=== PATIENT | female | born 1995 | race Caucasian/White ===

== ENCOUNTER 2016-07-31 02:48 | Outpatient (CLI) | payer SELFPAY ==
[~2016-07-31] VITALS: Ht 157.5 cm; Wt 55.0 kg
[~2016-07-31 02:48] MED LIST: /ACETCOD3T OR; /ACYC20CA OR; /AUGM875TA OR; DOXY150C PO; HYDR-4274 PO; KEFL500C7 PO; NITR100C37 PO; NSAIDS PO; OXYC1TAB23 PO; PERCOCET PO; PRIL20CA9 PO; PROZ10CA7 PO; ZOFR4TAB3 PO; [UNRECOGNIZED DRUG - REMARK]
[2016-07-31 02:56] VITALS: BP 129/79
[2016-07-31 03:53] LABS: MEAN CORPUSCULAR HEMOGLOBIN 25.9 pg (27.0-33.0); MEAN CORPUSCULAR HGB CONC 32.6 g/dl (32.0-36.5); MEAN CORPUSCULAR VOLUME 79.4 fl (80.0-96.0); RED CELL DISTRIBUTION WIDTH 15.2 % (11.5-14.5); WHITE BLOOD COUNT 11.5 K/mm3 (4.0-10.0)
[2016-07-31 04:13] LABS: AMPHETAMINES URINE REFLEX NEGATIVE (NEGATIVE); BARBITURATES URINE REFLEX NEGATIVE (NEGATIVE); BENZODIAZEPINES URINE REFLEX NEGATIVE (NEGATIVE); COCAINE METABOLITE URINE REFLE NEGATIVE (NEGATIVE); CONTROL LINE INT CTR LINE PRESENT; METHADONE URINE REFLEX NEGATIVE (NEGATIVE); OPIATES URINE REFLEX NEGATIVE (NEGATIVE); TRICYCLIC ANTIDEPRESS UR REFL NEGATIVE (NEGATIVE)
[2016-07-31 07:26] VITALS: BP 107/52
== END 2016-07-31 07:45 | disposition home or self-care (01) ==
LOC: M LDO 02:48
PROVIDERS: ATTEND Specialist
DX: O60.03 Preterm labor without delivery, third trimester (principal); Z3A.36 36 weeks gestation of pregnancy

== ENCOUNTER 2016-07-31 17:46 | Inpatient (IN) | payer MEDICAID, SELFPAY ==
[2016-07-31] VITALS (26 sets, daily range): BP systolic 93–147; BP diastolic 45–97
[~2016-07-31] VITALS: Ht 157.5 cm; Wt 52.0 kg
[2016-07-31] MEDS ORDERED: LR 1,000 ML IV SCH (18:22)
[2016-07-31] MEDS ORDERED: LACTATED RINGER'S 1000 ML IV STA (18:22)
[2016-07-31] MEDS ORDERED: OXYTOCIN DRIP 30 UNITS in APPROPRIATE DILUENT 1 EA IV SCH (18:30)
[2016-07-31] MEDS ORDERED: BUTORPHANOL 2 MG/ML INJ (J0595) IV PRN (18:30)
[2016-07-31] MEDS ORDERED: PROMETHAZINE INJ 25 MG/ML VIAL (J2550) IV PRN (18:30)
[2016-07-31 19:01] LABS: MEAN CORPUSCULAR HEMOGLOBIN 26.2 pg (27.0-33.0); MEAN CORPUSCULAR HGB CONC 32.8 g/dl (32.0-36.5); MEAN CORPUSCULAR VOLUME 79.9 fl (80.0-96.0); RED CELL DISTRIBUTION WIDTH 15.5 % (11.5-14.5); WHITE BLOOD COUNT 11.5 K/mm3 (4.0-10.0)
[2016-07-31 19:11] LABS: AMPHETAMINES URINE REFLEX NEGATIVE (NEGATIVE); BARBITURATES URINE REFLEX NEGATIVE (NEGATIVE); BENZODIAZEPINES URINE REFLEX NEGATIVE (NEGATIVE); COCAINE METABOLITE URINE REFLE NEGATIVE (NEGATIVE); CONTROL LINE INT CTR LINE PRESENT; METHADONE URINE REFLEX NEGATIVE (NEGATIVE); OPIATES URINE REFLEX NEGATIVE (NEGATIVE); TRICYCLIC ANTIDEPRESS UR REFL NEGATIVE (NEGATIVE)
--- NOTE | 2016-07-31 19:14 | HPE ---
DATE OF ADMISSION: 07/31/2016 21-year-old 2, para 0-0-1-0, estimated date of delivery 08/25/2016. Here at 36 weeks 4 days with reports of leaking clear fluid since about 1700. Denies regular contractions or bleeding. Fetus is active. Last normal menstrual period unknown. Sonogram at 7 weeks confirmed her date. Anatomy scan within normal limits. complicated by hyperemesis, poor weight gain and anemia. Social issues during included father of the baby drug use. ALLERGIES: She is allergic to amoxicillin. MEDICAL/SURGICAL HISTORY: Depression, anxiety and appendectomy. FAMILY HISTORY: Hepatitis A and C. SOCIAL HISTORY: Single. Family is supportive. Denies tobacco, alcohol or drugs. OBJECTIVE: Prepregnancy weight 98, total weight gain 22 pounds. A+, antibody negative, rubella immune, VDRL, hepatitis B, hepatitis C, HIV, gonorrhea, Chlamydia all negative. 1-hour glucose 81. 28-week H H 9.2 and 27 and group B strep is unknown. Vital signs are stable. She is in no apparent distress. Heart rate is regular. Respirations are easy. Abdomen is soft, gravid, longitudinal lie. Rare contractions. heart 145, moderate variability with accelerations. Clear fluid draining per vagina. Positive Nitrazine, positive fern. Sterile vaginal exam 2-3 cm, 90% -1 cephalic. Group B strep obtained. ASSESSMENT: Primipara at 36 weeks 4 days, premature rupture of membranes (PPROM), category one tracing social issues. PLAN: Admit urine drug screen, group B strep prophylaxis, Pitocin induction of labor.
[2016-07-31] MEDS ORDERED: FENTANYL 2MCG/ML ROPIVACAINE 0.2% NACL 250 ML CADD As Ordered ONE (20:59)
[2016-07-31] MEDS ORDERED: EPIDURAL/PCA KEYS XX PRN (22:15)
[2016-07-31] MEDS ORDERED: ePHEDrine SULFATE 25 MG/5 ML(5MG/ML) SYRINGE IV PRN (22:15)
[2016-07-31] MEDS ORDERED: FENTANYL/ROPIVACAINE/NACL CADD 250 ML EPIDURAL SCH (22:15)
[2016-07-31] MEDS ORDERED: NALOXONE INJ 0.4 MG/1 ML VIAL (J2310) IV PRN (22:15)
[2016-07-31] MEDS ORDERED: ONDANSETRON 4MG/2ML VIAL (J2405) IV PRN (22:15)
[2016-07-31] MEDS ORDERED: EPIDURAL COMMENT XX SCH (22:15)
[2016-07-31] MEDS ORDERED: diphenhydrAMINE INJ 50MG/ML VIAL (J1200) IV PRN (22:15)
[2016-07-31] MEDS ORDERED: REFRIGERATOR IV KEYS XX PRN (22:15)
[2016-07-31] MEDS ORDERED: LACTATED RINGER'S 1000 ML IV PRN (22:15)
[2016-08-01] VITALS (14 sets, daily range): BP systolic 87–126; BP diastolic 50–67
[2016-08-01] MEDS ORDERED: ACETAMINOPHEN 650 MG SUPP PR SCH (02:15)
[2016-08-01] MEDS ORDERED: ACETAMINOPHEN 650 MG SUPP PR PRN (02:20)
[2016-08-01] MEDS ORDERED: ceFAZolin SOD 1 GM in D5W MINI-BAG PLUS 50 ML IV SCH (03:00)
[2016-08-01] MEDS ORDERED: D5W IV ONE (03:00)
[2016-08-01] MEDS ORDERED: GENTAMICIN SULFATE IV ONE (03:00)
[2016-08-01 03:19] LABS: CORD GAS ABE A -0.2; CORD GAS ABE V -4.6; CORD GAS HCO3 A 25.3 MEQ/L; CORD GAS HCO3 V 19.5 MEQ/L; CORD GAS O2 SAT A 42.4 %; CORD GAS O2 SAT V 40.2 %; CORD GAS PCO2 A 44.1 mmHg; CORD GAS PCO2 V 33.8 mmHg; CORD GAS PH A 7.376 UNITS; CORD GAS PH V 7.379 UNITS; CORD GAS PO2 A 17.1 mmHg; CORD GAS PO2 V 18.1 mmHg; CORD GAS SBC A 22.8 MEQ/L; CORD GAS SBC V 19.3 MEQ/L; CORD GAS TCO2 A 26.6 MEQ/L; CORD GAS TCO2 V 20.5 MEQ/L
[2016-08-01] MEDS ORDERED: DOCUSATE SODIUM 100 MG CAP PO PRN (03:30)
[2016-08-01] MEDS ORDERED: ANUSOL HC CREAM 30GM TOP PRN (03:30)
[2016-08-01] MEDS ORDERED: MOM 30ML SUSPENSION UDC PO PRN (03:30)
[2016-08-01] MEDS ORDERED: METHYLERGONOVINE MALEATE 0.2 MG TAB PO PRN (03:30)
[2016-08-01] MEDS ORDERED: ACETAMINOPHEN 500 MG TAB PO PRN (03:30)
[2016-08-01] MEDS ORDERED: LIDOCAINE 1% MDV INJ 50 ML VIAL INFIL ONE (03:30)
[2016-08-01] MEDS ORDERED: DIBUCAINE 1% OINTMENT 30GM TOP PRN (03:30)
[2016-08-01] MEDS ORDERED: METHYLERGONOVINE MALEATE 0.2 MG/ML VIAL (J2210) IM ONE (03:30)
[2016-08-01] MEDS ORDERED: MEASLES,MUMPS,RUBELLA VACCINE INJ (MMR-II) (90707) SC SCH (03:30)
[2016-08-01] MEDS ORDERED: RHOGAM 300 MCG (1500 IU) INJ (J2790) IM SCH (03:30)
[2016-08-01] MEDS ORDERED: CLINDAMYCIN 600 MG in APPROPRIATE DILUENT 1 EA IV SCH (04:00)
--- NOTE | 2016-08-01 04:11 | DN ---
DATE OF SERVICE: 08/01/2016 Spontaneous rupture of membranes clear fluid 1540. Utilized epidural for coping. Maternal temperature prior to delivery 101.6. intensive care unit (NICU) was notified. Tylenol suppository given. Fully dilated 0235. Viable female delivered left occiput anterior (BERNIE) restituted to left occiput posterior (LOP) at 0256. Spontaneous respirations. Transitioned on maternal abdomen. Cord doubly clamped and cut once pulsations ceased. scores 9 and 9. Cord gases were obtained. Placenta Swan and intact with three-vessel cord at 0307. Fundus firmed with massage and intravenous (IV) Pitocin bolus. Intramuscular (IM) Methergine given for persistent bleeding with good control. Estimated blood loss 300 mL. Bilateral labial abrasions and posterior vaginal first-degree repaired with 3-0 Vicryl Rapide. weight 5 pounds 14 ounces, 2658 grams. Placenta sent to pathology. Sponge, sharp and instrument count correct.
[2016-08-01] MEDS ORDERED: ONDANSETRON 4 MG TAB (S0181) PO PRN (05:00)
[2016-08-01] MEDS: PRENATAL VITAMIN TAB PO SCH (08:27)
[2016-08-01] MEDS ORDERED: GENTAMICIN SULFATE 80 MG in APPROPRIATE DILUENT 1 EA IV SCH (11:00)
[2016-08-02 05:56] VITALS: BP 105/52
[2016-08-02] MEDS: PRENATAL VITAMIN TAB PO SCH (08:54)
[2016-08-02 18:00] VITALS: BP 126/60
[2016-08-03] MEDS: IBUPROFEN 800 MG TAB PO PRN ×2 (01:34→08:14)
[2016-08-03 06:11] VITALS: BP 91/51
[2016-08-03] MEDS: PRENATAL VITAMIN TAB PO SCH (08:14)
[2016-08-03] MEDS ORDERED: PRENTAB9 PO (08:19)
[2016-08-03] MEDS ORDERED: ACET50TA PO (08:19)
[2016-08-03] MEDS ORDERED: IBUP-1114 PO (08:20)
== END 2016-08-03 09:10 | disposition home or self-care (01) | DRG 560 ==
LOC: M LDO 17:46 → M LDI 18:20 → M OBS 08-01 05:11
PROVIDERS: ADMIT Advanced Practice Midwife; ATTEND Advanced Practice Midwife
PROC: 10E0XZZ Delivery of Products of Conception, External Approach (ICD-10-PCS; principal; 2016-08-01)
PROC: 0HQ9XZZ Repair Perineum Skin, External Approach (ICD-10-PCS; 2016-08-01)
DX: O42.013 Preterm premature rupture of membranes, onset of labor within 24 hours of rupture, third trimester (principal); O70.0 First degree perineal laceration during delivery; Z37.0 Single live birth; Z3A.36 36 weeks gestation of pregnancy

== ENCOUNTER 2017-03-06 22:49 | Emergency (ER) | payer MEDICAID ==
[~2017-03-06] VITALS: Ht 157.5 cm; Wt 46.2 kg
[~2017-03-06 22:49] MED LIST changes: +ACET50TA PO; -HYDR-4274 PO; +HYDR50TA70 PO; +IBUP-1114 PO; +KEFL500C17 PO; -KEFL500C7 PO; -NITR100C37 PO; +NITR100C39 PO; +PRENTAB9 PO
[2017-03-07] MEDS ORDERED: NS 1,000 ML IV ONE (01:00)
[2017-03-07 01:24] LABS: BASO % 0.3 % (0.0-1.0); EOS # 0.1 K/mm3 (0.0-0.50); EOS % 2.2 % (0.0-3.0); LARGE UNSTAINED CELL # 0.1 K/mm3 (0.0-0.4); LARGE UNSTAINED CELL % 1.8 % (0.0-4.0); LYMPH # 2.6 K/mm3 (1.5-6.5); LYMPH % 41.6 % (24.0-44.0); MEAN CORPUSCULAR HEMOGLOBIN 29.9 pg (27.0-33.0); MEAN CORPUSCULAR VOLUME 87.9 fl (80.0-96.0); MONO # 0.5 K/mm3 (0.0-0.8); MONO % 7.8 % (0.0-5.0); NEUTROPHILS # 2.9 K/mm3 (1.8-7.7); NEUTROPHILS % 46.4 % (36.0-66.0); PLATELET COUNT, AUTOMATED 291 k/mm3 (150-450); RED CELL DISTRIBUTION WIDTH 13.7 % (11.5-14.5); WHITE BLOOD COUNT 6.2 K/mm3 (4.0-10.0)
[2017-03-07 01:50] LABS: ALBUMIN 4.2 GM/DL (3.2-5.2); ALBUMIN/GLOBULIN RATIO 1.27 (1.00-1.93); ALKALINE PHOSPHATASE 63 U/L (45-117); ALT/SGPT 19 U/L (12-78); ANION GAP 4 MEQ/L (8-16); AST/SGOT 14 U/L (15-37); BILIRUBIN,DIRECT < 0.1 MG/DL (0.0-0.2); BILIRUBIN,TOTAL 0.3 MG/DL (0.2-1.0); BLOOD UREA NITROGEN 18 MG/DL (7-18); CALCIUM LEVEL 9.1 MG/DL (8.5-10.1); CARBON DIOXIDE LEVEL 28 MEQ/L (21-32); CHLORIDE LEVEL 107 MEQ/L (98-107); CREATININE FOR GFR 0.77 MG/DL (0.55-1.02); GLOMERULAR FILTRATION RATE > 60.0 (>60); GLUCOSE, FASTING 88 MG/DL (70-105); POTASSIUM SERUM 4.6 MEQ/L (3.5-5.1); SODIUM LEVEL 139 MEQ/L (136-145); TOTAL PROTEIN 7.5 GM/DL (6.4-8.2)
[2017-03-07 02:03] VITALS: BP 103/71
--- NOTE | 2017-03-07 02:50 | REPUSA ---
CLINICAL HISTORY: Pelvic pain. TECHNIQUE: Realtime sonographic images were obtained in multiple projections via TA approach. COMMENTS: The uterus is anteverted measuring 7.7x 4.2 x 4.3 cm. The endometrial echo pattern is within normal l imits measuring 15 mm. There is no evidence of free fluid within the pelvic cul-de-sac. The right ovary measures 3.7 x 2.9 x 3 cm and the left ovary measures 4.7 x 3.2 x 2.9 cm. Both ovarie s are free of solid mass. Left hemorrhagic cyst 2 x 1.6 x 1.9 cm. There is no evidence for abnormal vascularity. IMPRESSION: Left ovarian hemorrhagic cyst 2 x 1.6 x 1.9 cm. Thickened endometrium. Thank you for your kind referral of this patient.
== END 2017-03-07 02:44 | disposition home or self-care (01) ==
LOC: M ED 22:49
DX: N83.202 Unspecified ovarian cyst, left side (principal); N91.1 Secondary amenorrhea; Z87.440 Personal history of urinary (tract) infections; Z88.0 Allergy status to penicillin

== ENCOUNTER → 2017-05-28 | Outpatient (REF) | payer MEDICAID | LOC: M LAB REF 09:08 | PROVIDERS: ATTEND Physician Assistant Medical | DX: N39.0 Urinary tract infection, site not specified (principal) ==

== ENCOUNTER 2017-11-27 20:58 | Emergency (ER) | payer OTHER, SELFPAY, MEDICAID ==
[2017-11-27 22:01] LABS: KETONE, URINE AUTO RFX 1+ mg/dL (NEGATIVE); MUCUS, URINE RFX LARGE (NEGATIVE); NITRITE, URINE AUTO RFX NEGATIVE (NEGATIVE); RBC, URINE AUTO RFX 37 /HPF (0-3); SPECIFIC GRAVITY UR AUTO RFX 1.028 (1.002-1.035); SQUAM EPITHELIAL CELL UR AURFX 9 /HPF (0-6)
[2017-11-27 22:05] LABS: LEUKOCYTE ESTERASE UR AUTO RFX 3+ (NEGATIVE); WBC, URINE AUTO RFX 168 /HPF (0-3)
[2017-11-27 23:25] LABS: BASO % 0.3 % (0.0-1.0); EOS # 0.1 10^3/uL (0.0-0.50); EOS % 0.6 % (0.0-3.0); HEMATOCRIT 41.7 % (36.0-47.0); HEMOGLOBIN 14.2 g/dl (12.0-15.5); IMMATURE GRANULOCYTE % 0.2 % (0-3.0); LYMPH # 2.4 10^3/uL (1.5-6.5); LYMPH % 24.8 % (24.0-44.0); MEAN CORPUSCULAR HEMOGLOBIN 29.9 pg (27.0-33.0); MEAN CORPUSCULAR HGB CONC 34.1 g/dl (32.0-36.5); MEAN CORPUSCULAR VOLUME 87.8 fl (80.0-96.0); MONO # 0.9 10^3/uL (0.0-0.8); MONO % 9.8 % (0.0-5.0); NEUTROPHILS # 6.1 10^3/uL (1.8-7.7); NEUTROPHILS % 64.3 % (36.0-66.0); PLATELET COUNT, AUTOMATED 305 10^3/uL (150-450); RED BLOOD COUNT 4.75 10^6/uL (4.00-5.40); RED CELL DISTRIBUTION WIDTH 12.5 % (11.5-14.5); WHITE BLOOD COUNT 9.5 10^3/uL (4.0-10.0)
[2017-11-27 23:36] LABS: PROTHROMBIN TIME 13.3 SECONDS (12.4-14.5)
[2017-11-27] MEDS: NS 1,000 ML IV ×2 (23:43)
[2017-11-28 00:04] LABS: ALBUMIN 3.8 GM/DL (3.2-5.2); ALBUMIN/GLOBULIN RATIO 0.97 (1.00-1.93); ALKALINE PHOSPHATASE 48 U/L (45-117); ALT/SGPT 16 U/L (12-78); AMYLASE 60 U/L (25-115); ANION GAP 7 MEQ/L (8-16); AST/SGOT 13 U/L (7-37); BILIRUBIN,DIRECT 0.1 MG/DL (0.0-0.2); BILIRUBIN,TOTAL 0.8 MG/DL (0.2-1.0); BLOOD UREA NITROGEN 11 MG/DL (7-18); CALCIUM LEVEL 9.1 MG/DL (8.5-10.1); CARBON DIOXIDE LEVEL 26 MEQ/L (21-32); CHLORIDE LEVEL 104 MEQ/L (98-107); CREATININE FOR GFR 0.66 MG/DL (0.55-1.30); GLOMERULAR FILTRATION RATE > 60.0 (>60); GLUCOSE, FASTING 65 MG/DL (70-100); HCG, SERUM QUANTITATIVE 88798 MIU/ML; LIPASE 91 U/L (73-393); POTASSIUM SERUM 4.2 MEQ/L (3.5-5.1); SODIUM LEVEL 137 MEQ/L (136-145); TOTAL PROTEIN 7.7 GM/DL (6.4-8.2)
[2017-11-28 02:27] LABS: CHLAMYDIA DNA AMPLIFICATION NEGATIVE (NEGATIVE); GC DNA AMPLIFICATION NEGATIVE (NEGATIVE)
== END 2017-11-28 00:51 | disposition home or self-care (01) ==
LOC: M ED 11-28 00:51
DX: O23.41 Unspecified infection of urinary tract in pregnancy, first trimester (principal); O99.341 Other mental disorders complicating pregnancy, first trimester; F41.9 Anxiety disorder, unspecified; F33.9 Major depressive disorder, recurrent, unspecified; O99.611 Diseases of the digestive system complicating pregnancy, first trimester; K21.9 Gastro-esophageal reflux disease without esophagitis; Z88.0 Allergy status to penicillin; Z3A.01 Less than 8 weeks gestation of pregnancy
CPT/HCPCS: 76801

== ENCOUNTER 2017-12-05 12:03 | Emergency (ER) | payer OTHER, SELFPAY, MEDICAID ==
[2017-12-05] MEDS: NS 1,000 ML IV ×2 (16:00)
[2017-12-05 16:21] LABS: BASO % 0.2 % (0.0-1.0); EOS % 0.2 % (0.0-3.0); HEMATOCRIT 41.7 % (36.0-47.0); HEMOGLOBIN 14.4 g/dl (12.0-15.5); IMMATURE GRANULOCYTE % 0.2 % (0-3.0); LYMPH # 1.9 10^3/uL (1.5-6.5); LYMPH % 21.7 % (24.0-44.0); MEAN CORPUSCULAR HGB CONC 34.5 g/dl (32.0-36.5); MEAN CORPUSCULAR VOLUME 86.9 fl (80.0-96.0); MONO # 0.7 10^3/uL (0.0-0.8); MONO % 8.2 % (0.0-5.0); NEUTROPHILS # 5.9 10^3/uL (1.8-7.7); NEUTROPHILS % 69.5 % (36.0-66.0); PLATELET COUNT, AUTOMATED 316 10^3/uL (150-450); RED CELL DISTRIBUTION WIDTH 12.2 % (11.5-14.5); WHITE BLOOD COUNT 8.5 10^3/uL (4.0-10.0)
[2017-12-05 16:30] LABS: KETONE, URINE AUTO RFX 2+ mg/dL (NEGATIVE); MUCUS, URINE RFX SMALL (NEGATIVE); NITRITE, URINE AUTO RFX NEGATIVE (NEGATIVE); RBC, URINE AUTO RFX 4 /HPF (0-3); SPECIFIC GRAVITY UR AUTO RFX 1.027 (1.002-1.035); SQUAM EPITHELIAL CELL UR AURFX 3 /HPF (0-6); WBC, URINE AUTO RFX 8 /HPF (0-3)
[2017-12-05 16:31] LABS: LEUKOCYTE ESTERASE UR AUTO RFX 2+ (NEGATIVE)
[2017-12-05] MEDS: METOCLOPRAMIDE INJ 10MG/2ML VIAL (J2765) IV ×2 (17:05)
[2017-12-05 17:12] LABS: HCG, SERUM QUANTITATIVE 156112 MIU/ML
== END 2017-12-05 17:39 | disposition home or self-care (01) ==
LOC: M ED 12:03
DX: O21.9 Vomiting of pregnancy, unspecified (principal); Z3A.00 Weeks of gestation of pregnancy not specified; O99.341 Other mental disorders complicating pregnancy, first trimester; F33.9 Major depressive disorder, recurrent, unspecified; F41.9 Anxiety disorder, unspecified; O99.611 Diseases of the digestive system complicating pregnancy, first trimester; K21.9 Gastro-esophageal reflux disease without esophagitis; Z98.890 Other specified postprocedural states; Z88.0 Allergy status to penicillin
CPT/HCPCS: J2765

== ENCOUNTER 2018-06-02 16:21 | Emergency (ER) | payer MEDICAID ==
[2018-06-02 17:28] LABS: BASO % 0.4 % (0.0-1.0); EOS % 0.5 % (0.0-3.0); HEMOGLOBIN 15.1 g/dl (12.0-15.5); IMMATURE GRANULOCYTE % 0.3 % (0-3.0); LYMPH # 2.3 10^3/uL (1.5-6.5); LYMPH % 31.4 % (24.0-44.0); MEAN CORPUSCULAR HEMOGLOBIN 29.4 pg (27.0-33.0); MEAN CORPUSCULAR HGB CONC 32.8 g/dl (32.0-36.5); MEAN CORPUSCULAR VOLUME 89.5 fl (80.0-96.0); MONO # 0.8 10^3/uL (0.0-0.8); MONO % 10.8 % (0.0-5.0); NEUTROPHILS # 4.2 10^3/uL (1.8-7.7); NEUTROPHILS % 56.6 % (36.0-66.0); PLATELET COUNT, AUTOMATED 308 10^3/uL (150-450); RED BLOOD COUNT 5.14 10^6/uL (4.00-5.40); RED CELL DISTRIBUTION WIDTH 12.4 % (11.5-14.5); WHITE BLOOD COUNT 7.4 10^3/uL (4.0-10.0)
[2018-06-02 17:34] LABS: ALBUMIN 4.5 GM/DL (3.2-5.2); ALBUMIN/GLOBULIN RATIO 1.25 (1.00-1.93); ALKALINE PHOSPHATASE 62 U/L (45-117); ALT/SGPT 26 U/L (12-78); AMYLASE 79 U/L (25-115); ANION GAP 9 MEQ/L (8-16); AST/SGOT 15 U/L (7-37); BILIRUBIN,TOTAL 0.6 MG/DL (0.2-1.0); BLOOD UREA NITROGEN 16 MG/DL (7-18); CALCIUM LEVEL 9.2 MG/DL (8.5-10.1); CARBON DIOXIDE LEVEL 26 MEQ/L (21-32); CHLORIDE LEVEL 104 MEQ/L (98-107); CREATININE FOR GFR 0.86 MG/DL (0.55-1.30); GLOMERULAR FILTRATION RATE > 60.0 (>60); GLUCOSE, FASTING 80 MG/DL (70-100); HCG, SERUM QUANTITATIVE < 1.0 MIU/ML; LIPASE 110 U/L (73-393); POTASSIUM SERUM 4.1 MEQ/L (3.5-5.1); SODIUM LEVEL 139 MEQ/L (136-145); TOTAL PROTEIN 8.1 GM/DL (6.4-8.2)
[2018-06-02 17:38] LABS: APPEARANCE, URINE CLEAR (CLEAR); BACTERIA, URINE AUTO NEGATIVE (NEGATIVE); BILIRUBIN, URINE AUTO NEGATIVE (NEGATIVE); BLOOD, URINE BLOOD 1+ (NEGATIVE); COLOR, URINE YELLOW (YELLOW); GLUCOSE, URINE (UA) AUTO NEGATIVE (NEGATIVE); KETONE, URINE AUTO TRACE mg/dL (NEGATIVE); LEUKOCYTE ESTERASE, URINE AUTO NEGATIVE (NEGATIVE); MUCUS, URINE SMALL (NEGATIVE); NITRITE, URINE AUTO NEGATIVE (NEGATIVE); PROTEIN, URINE AUTO NEGATIVE (NEGATIVE); RBC, URINE AUTO 8 /HPF (0-3); SPECIFIC GRAVITY URINE AUTO 1.023 (1.002-1.035); SQUAMOUS EPITHELIAL CELL UR AU 0 /HPF (0-6); WBC, URINE AUTO 2 /HPF (0-3)
[2018-06-02] MEDS: NS 500 ML IV (17:39)
[2018-06-02] MEDS: METOCLOPRAMIDE INJ 10MG/2ML VIAL (J2765) IV (17:40)
[2018-06-02] MEDS: KETOROLAC 30 MG/ML VIAL (J1885) IV (17:40)
[2018-06-02] MEDS: GASTROGRAFIN SOLUTION 30ML PO ×2 (18:12→18:37)
[2018-06-02] MEDS ORDERED: ISOVUE-370 76% 100ML VIAL (Q9967) As Ordered (19:37)
== END 2018-06-02 21:57 | disposition home or self-care (01) ==
LOC: M ED 16:21
DX: R10.84 Generalized abdominal pain (principal); R11.2 Nausea with vomiting, unspecified; T50.905A Adverse effect of unspecified drugs, medicaments and biological substances, initial encounter; X58.XXXA Exposure to other specified factors, initial encounter; F33.9 Major depressive disorder, recurrent, unspecified; F41.9 Anxiety disorder, unspecified; Z87.440 Personal history of urinary (tract) infections; Z88.0 Allergy status to penicillin; F17.210 Nicotine dependence, cigarettes, uncomplicated
CPT/HCPCS: Q9963

== ENCOUNTER → 2018-07-31 | Outpatient (REF) | payer MEDICAID ==
[~2018-07-31] MED LIST changes: -ACET50TA PO; +MACR100C43 PO; +MAPA500T2 PO; +ZOFR4TAB14 PO; -ZOFR4TAB3 PO
[2018-07-31 15:15] LABS: CHLAMYDIA DNA AMPLIFICATION NEGATIVE (NEGATIVE); GC DNA AMPLIFICATION NEGATIVE (NEGATIVE)
== END ==
LOC: M LAB REF 13:26
PROVIDERS: ATTEND Advanced Practice Midwife
DX: Z11.3 Encounter for screening for infections with a predominantly sexual mode of transmission (principal)

== ENCOUNTER → 2018-07-31 | Outpatient (CLI) | payer MEDICAID ==
[2018-07-31 13:46] LABS: HCG, SERUM QUALITATIVE NEGATIVE (NEGATIVE)
[2018-07-31 14:06] LABS: FREE T4 0.42 NG/DL (0.76-1.46)
== END ==
LOC: M LAB 12:28
PROVIDERS: ATTEND Advanced Practice Midwife
DX: N91.1 Secondary amenorrhea (principal)

== ENCOUNTER 2018-10-09 12:33 | Emergency (ER) | payer MEDICAID ==
[~2018-10-09] VITALS: Ht 157.5 cm; Wt 47.9 kg
[~2018-10-09 12:33] MED LIST changes: -/ACETCOD3T OR; -/ACYC20CA OR; +ACET1TAB16 OR; +ACYC1CAP8 OR
[2018-10-09 14:45] VITALS: BP 120/58
[2018-10-09] MEDS ORDERED: CLOT7CR PV (14:47)
[2018-10-09] MEDS ORDERED: MACR100C43 PO (14:47)
[2018-10-09 14:53] LABS: CHLAMYDIA DNA AMPLIFICATION NEGATIVE (NEGATIVE); GC DNA AMPLIFICATION NEGATIVE (NEGATIVE)
== END 2018-10-09 15:02 | disposition home or self-care (01) ==
LOC: M ED 12:33
DX: O23.41 Unspecified infection of urinary tract in pregnancy, first trimester (principal); B37.3 Candidiasis of vulva and vagina; Z3A.01 Less than 8 weeks gestation of pregnancy; Z88.0 Allergy status to penicillin; Z87.891 Personal history of nicotine dependence

== ENCOUNTER 2018-10-25 11:22 | Emergency (ER) | payer MEDICAID ==
[~2018-10-25] VITALS: Ht 157.5 cm; Wt 47.7 kg
[~2018-10-25 11:22] MED LIST changes: -REGL10TA6 PO
[2018-10-25 12:19] LABS: BASO % 0.3 % (0.0-1.0); EOS % 0.1 % (0.0-3.0); HEMATOCRIT 43.2 % (36.0-47.0); HEMOGLOBIN 14.8 g/dl (12.0-15.5); LYMPH # 1.2 10^3/uL (1.5-6.5); MEAN CORPUSCULAR HEMOGLOBIN 30.8 pg (27.0-33.0); MEAN CORPUSCULAR HGB CONC 34.3 g/dl (32.0-36.5); MONO # 0.6 10^3/uL (0.0-0.8); MONO % 7.2 % (0.0-5.0); NEUTROPHILS # 6.1 10^3/uL (1.8-7.7); PLATELET COUNT, AUTOMATED 316 10^3/uL (150-450); WHITE BLOOD COUNT 7.9 10^3/uL (4.0-10.0)
[2018-10-25 12:22] LABS: BLOOD UREA NITROGEN 14 MG/DL (7-18); CALCIUM LEVEL 9.3 MG/DL (8.5-10.1); CARBON DIOXIDE LEVEL 23 MEQ/L (21-32); CHLORIDE LEVEL 102 MEQ/L (98-107); CREATININE FOR GFR 0.66 MG/DL (0.55-1.30); GLOMERULAR FILTRATION RATE > 60.0 (>60); GLUCOSE, FASTING 72 MG/DL (70-100); POTASSIUM SERUM 4.1 MEQ/L (3.5-5.1); SODIUM LEVEL 135 MEQ/L (136-145)
[2018-10-25] MEDS ORDERED: NS 1,000 ML IV ONE (12:30)
[2018-10-25] MEDS ORDERED: REGL10TA6 PO (13:58)
[2018-10-25 14:05] VITALS: BP 90/51
[2018-10-25 14:24] LABS: HCG, SERUM QUANTITATIVE 195240 MIU/ML
== END 2018-10-25 14:30 | disposition home or self-care (01) ==
LOC: M ED 11:22
DX: Z32.01 Encounter for pregnancy test, result positive (principal); R11.2 Nausea with vomiting, unspecified; Z3A.09 9 weeks gestation of pregnancy; E03.9 Hypothyroidism, unspecified; O99.341 Other mental disorders complicating pregnancy, first trimester; F33.9 Major depressive disorder, recurrent, unspecified; F41.9 Anxiety disorder, unspecified; O99.281 Endocrine, nutritional and metabolic diseases complicating pregnancy, first trimester; O99.611 Diseases of the digestive system complicating pregnancy, first trimester; K21.9 Gastro-esophageal reflux disease without esophagitis; Z88.0 Allergy status to penicillin; Z87.891 Personal history of nicotine dependence

== ENCOUNTER → 2018-10-25 | Outpatient (REF) | payer MEDICAID ==
[~2018-10-25] MED LIST changes: +CLOT7CR PV; +REGL10TA6 PO
[2018-10-25 12:46] LABS: HEMATOCRIT 44.3 % (36.0-47.0); HEMOGLOBIN 15.2 g/dl (12.0-15.5); MEAN CORPUSCULAR HEMOGLOBIN 30.8 pg (27.0-33.0); MEAN CORPUSCULAR HGB CONC 34.3 g/dl (32.0-36.5); MEAN CORPUSCULAR VOLUME 89.9 fl (80.0-96.0); PLATELET COUNT, AUTOMATED 309 10^3/uL (150-450); RED BLOOD COUNT 4.93 10^6/uL (4.00-5.40); WHITE BLOOD COUNT 8.7 10^3/uL (4.0-10.0)
[2018-10-25 13:23] LABS: RUBELLA IgG QUALITATIVE IMMUNE (IMMUNE)
[2018-10-25 13:44] LABS: HEPATITIS C VIRUS ABY INDEX 0.1 INDEX (<0.8)
[2018-10-25 13:45] LABS: HIV 1&2 SCREEN CENTAUR NEGATIVE (NEGATIVE)
== END ==
LOC: M LAB REF 11:49
PROVIDERS: ATTEND Obstetrics & Gynecology
DX: Z32.01 Encounter for pregnancy test, result positive (principal); O36.80X0 Pregnancy with inconclusive fetal viability, not applicable or unspecified

== ENCOUNTER 2018-11-02 00:16 | Emergency (ER) | payer MEDICAID ==
[~2018-11-02] VITALS: Ht 157.5 cm; Wt 51.8 kg
[~2018-11-02 00:16] MED LIST changes: +REGL10TA6 PO
[2018-11-02] MEDS ORDERED: COMPPAK PO (00:39)
[2018-11-02 00:59] LABS: BASO % 0.2 % (0.0-1.0); EOS # 0.1 10^3/uL (0.0-0.50); EOS % 0.5 % (0.0-3.0); HEMATOCRIT 37.6 % (36.0-47.0); HEMOGLOBIN 13.2 g/dl (12.0-15.5); LYMPH # 2.5 10^3/uL (1.5-6.5); LYMPH % 24.9 % (24.0-44.0); MEAN CORPUSCULAR HGB CONC 35.1 g/dl (32.0-36.5); MEAN CORPUSCULAR VOLUME 88.3 fl (80.0-96.0); MONO # 0.9 10^3/uL (0.0-0.8); MONO % 8.9 % (0.0-5.0); NEUTROPHILS # 6.5 10^3/uL (1.8-7.7); NEUTROPHILS % 65.2 % (36.0-66.0); PLATELET COUNT, AUTOMATED 303 10^3/uL (150-450); RED BLOOD COUNT 4.26 10^6/uL (4.00-5.40)
[2018-11-02] MEDS ORDERED: CEPHALEXIN 500 MG CAP PO ONE (04:00)
[2018-11-02] MEDS ORDERED: KEFL500C17 PO (04:00)
[2018-11-02 04:09] VITALS: BP 90/51
--- NOTE | 2018-11-03 09:15 | REP ---
First trimester ultrasound for cramping: The study is performed with transabdominal imaging. The bladder is adequately distended. There is a single intrauterine gestation. The heart rate is 171 beats per minute. The pole crown-rump length measures 25 mm. This corresponds to a gestational age of 9 weeks 2 days. The FARHAN is 06/05/2019. By LMP the gestational age is 10 weeks 3 days/FARHAN 05/28/2019. There is no subchorionic hematoma. The maternal adnexa are unremarkable. Stat emergency interpretation is given after-hours upon completion of the study by Jono Ohara MD of [facility]. Electronically Signed by Jose Beck MD 11/02/2018 01:02 P
== END 2018-11-02 04:14 | disposition home or self-care (01) ==
LOC: M ED 00:16
DX: O26.891 Other specified pregnancy related conditions, first trimester (principal); M54.5 Low back pain; Z3A.09 9 weeks gestation of pregnancy; Z87.440 Personal history of urinary (tract) infections

== ENCOUNTER → 2019-03-12 | Outpatient (CLI) | payer MEDICAID ==
[~2019-03-12] MED LIST changes: +COMPPAK PO
[2019-03-12 16:24] LABS: HEMATOCRIT 34.5 % (36.0-47.0); HEMOGLOBIN 10.7 g/dl (12.0-15.5); MEAN CORPUSCULAR HEMOGLOBIN 28.5 pg (27.0-33.0); MEAN CORPUSCULAR VOLUME 91.8 fl (80.0-96.0); PLATELET COUNT, AUTOMATED 241 10^3/uL (150-450); RED BLOOD COUNT 3.76 10^6/uL (4.00-5.40); WHITE BLOOD COUNT 9.9 10^3/uL (4.0-10.0)
== END ==
LOC: M LAB 14:26
PROVIDERS: ATTEND Nurse Practitioner Women's Health
DX: Z34.82 Encounter for supervision of other normal pregnancy, second trimester (principal); Z3A.00 Weeks of gestation of pregnancy not specified

== ENCOUNTER 2019-04-12 22:50 | Emergency (ER) | payer MEDICAID, OTHER ==
[~2019-04-12] VITALS: Ht 157.5 cm; Wt 53.6 kg
[2019-04-12 22:50] VITALS: BP 124/62
--- NOTE | 2019-04-13 11:32 | REP ---
RIGHT ELBOW AP LATERAL: 04/12/2019. Clinical history: Trauma, pain and swelling. Findings: Only two views presented for this trauma series. Radial head and capitellum align normally on both views. There is no definite joint effusion, fracture or avulsion. Triceps insertion was unremarkable. Distal humerus, the olecranon and proximal radius normal. Impression: 1. Negative two-view elbow series. Electronically Signed by Gabriel Leon MD 04/13/2019 07:02 P
== END 2019-04-12 23:57 | disposition home or self-care (01) ==
LOC: M ED 22:50
DX: O9A.213 Injury, poisoning and certain other consequences of external causes complicating pregnancy, third trimester (principal); S50.01XA Contusion of right elbow, initial encounter; W19.XXXA Unspecified fall, initial encounter; Y92.59 Other trade areas as the place of occurrence of the external cause; Y93.89 Activity, other specified; Y99.0 Civilian activity done for income or pay; O99.613 Diseases of the digestive system complicating pregnancy, third trimester; K21.9 Gastro-esophageal reflux disease without esophagitis; O99.89 Other specified diseases and conditions complicating pregnancy, childbirth and the puerperium; E03.9 Hypothyroidism, unspecified; Z3A.34 34 weeks gestation of pregnancy; Z88.0 Allergy status to penicillin

== ENCOUNTER → 2019-05-05 | Outpatient (REF) | payer MEDICAID | LOC: M LAB REF 16:58 | PROVIDERS: ATTEND Nurse Practitioner Women's Health | DX: Z34.83 Encounter for supervision of other normal pregnancy, third trimester (principal) ==

== ENCOUNTER 2019-07-03 13:41 | Emergency (ER) | payer MEDICAID ==
[~2019-07-03] VITALS: Ht 157.5 cm; Wt 49.1 kg
[2019-07-03] MEDS ORDERED: LOPERAMIDE 2 MG CAPLET PO ONE (15:45)
[2019-07-03] MEDS ORDERED: ONDA4TAB6 PO (16:43)
[2019-07-03] MEDS ORDERED: FLAG500T PO (16:43)
[2019-07-03 16:47] VITALS: BP 107/75
== END 2019-07-03 16:54 | disposition home or self-care (01) ==
LOC: M ED 13:41
DX: A08.11 Acute gastroenteropathy due to Norwalk agent (principal); A08.4 Viral intestinal infection, unspecified; A04.72 Enterocolitis due to Clostridium difficile, not specified as recurrent; K21.9 Gastro-esophageal reflux disease without esophagitis; E07.9 Disorder of thyroid, unspecified; Z87.891 Personal history of nicotine dependence; Z88.0 Allergy status to penicillin

== ENCOUNTER 2019-08-23 15:43 | Emergency (ER) | payer MEDICAID ==
[~2019-08-23] VITALS: Ht 157.5 cm; Wt 49.0 kg
[~2019-08-23 15:43] MED LIST changes: +FLAG500T PO; +ONDA4TAB6 PO
[2019-08-23 16:46] LABS: INFLUENZA A AMPLIFICATION NEGATIVE (NEGATIVE); INFLUENZA B AMPLIFICATION POSITIVE (NEGATIVE)
[2019-08-23 17:14] LABS: BASO % 0.4 % (0.0-1.0); EOS % 0.7 % (0.0-3.0); HEMATOCRIT 44.4 % (36.0-47.0); HEMOGLOBIN 13.8 g/dl (12.0-15.5); MEAN CORPUSCULAR HEMOGLOBIN 25.7 pg (27.0-33.0); MEAN CORPUSCULAR HGB CONC 31.1 g/dl (32.0-36.5); MEAN CORPUSCULAR VOLUME 82.7 fl (80.0-96.0); MONO # 1.2 10^3/uL (0.0-0.8); MONO % 25.5 % (0.0-5.0); NEUTROPHILS # 1.3 10^3/uL (1.5-8.5); NEUTROPHILS % 29.2 % (36.0-66.0); PLATELET COUNT, AUTOMATED 298 10^3/uL (150-450); RED BLOOD COUNT 5.37 10^6/uL (4.00-5.40); WHITE BLOOD COUNT 4.6 10^3/uL (4.0-10.0)
[2019-08-23] MEDS ORDERED: ACETAMINOPHEN TAB 650MG DOSE (2X325MG) PO ONE (17:15)
[2019-08-23 17:47] LABS: HCG, SERUM QUALITATIVE NEGATIVE (NEGATIVE)
[2019-08-23 17:55] LABS: THYROID STIMULATING HORMONE 0.106 uIU/ML (0.358-3.740)
[2019-08-23 18:25] LABS: FREE T4 0.86 NG/DL (0.76-1.46)
[2019-08-23 18:38] VITALS: BP 117/61
== END 2019-08-23 18:54 | disposition home or self-care (01) ==
LOC: M ED 15:43
DX: J10.1 Influenza due to other identified influenza virus with other respiratory manifestations (principal); K21.9 Gastro-esophageal reflux disease without esophagitis; F41.9 Anxiety disorder, unspecified; F32.9 Major depressive disorder, single episode, unspecified; E03.9 Hypothyroidism, unspecified; Z88.0 Allergy status to penicillin

== ENCOUNTER 2019-09-20 19:26 | Emergency (ER) | payer MEDICAID ==
[2019-09-20 21:28] LABS: INFLUENZA A AMPLIFICATION NEGATIVE (NEGATIVE); INFLUENZA B AMPLIFICATION NEGATIVE (NEGATIVE)
[2019-09-20] MEDS ORDERED: TESS100C PO (22:07)
[2019-09-20 22:19] VITALS: BP 107/56
== END 2019-09-20 22:28 | disposition home or self-care (01) ==
LOC: M ED 19:26
DX: B34.9 Viral infection, unspecified (principal); K21.9 Gastro-esophageal reflux disease without esophagitis; E03.9 Hypothyroidism, unspecified; F41.9 Anxiety disorder, unspecified; F32.9 Major depressive disorder, single episode, unspecified; Z88.0 Allergy status to penicillin

== ENCOUNTER → 2020-06-01 | Outpatient (CLI) | payer MEDICAID ==
[~2020-06-01] MED LIST changes: +TESS100C PO
--- NOTE | 2020-06-02 04:14 | REP ---
INDICATION: PELVIC AND PERINEAL PAIN COMPARISON: None. TECHNIQUE: Transabdominal pelvic ultrasound followed by transvaginal examination for better evaluation of the endometrium and adnexa with color Doppler evaluation of the ovaries. FINDINGS: Bladder is unremarkable and measures 4.8 x 3.9 x 7.7 cm. Normal anteverted retroflexed uterus measures 8.1 x 3.6 x 3.9 cm. The endometrial complex measures 3.0 mm thickness. No discrete uterine or endometrial abnormalities are appreciated. Bilateral ovaries are normal in appearance and vascularity without evidence for torsion. Right ovary measures 4.1 x 3.3 x 2.7 cm; R I = 0.50. Left ovary measures 3.4 x 2.4 x 3.2 cm; R I = 0.62. No pelvic fluid or adnexal mass lesion IMPRESSION: Essentially normal pelvic ultrasound. <Electronically signed by Ricky Amaro > 06/02/20 [id number]
== END ==
LOC: M RAD 11:21
DX: R10.2 Pelvic and perineal pain (principal)

== ENCOUNTER → 2020-09-08 | Outpatient (CLI) | payer SELFPAY | LOC: M LABSMTC 10:30 | PROVIDERS: ATTEND Pediatrics | DX: Z11.52 Encounter for screening for COVID-19 (principal) ==

== ENCOUNTER 2021-04-01 19:55 | Emergency (ER) | payer MEDICAID ==
[~2021-04-01] VITALS: Ht 157.5 cm; Wt 53.4 kg
[2021-04-01 19:56] VITALS: BP 111/70
== END 2021-04-01 21:50 | disposition left against medical advice (07) ==
LOC: M ED 19:55
DX: Z53.21 Procedure and treatment not carried out due to patient leaving prior to being seen by health care provider (principal)

== ENCOUNTER 2022-10-28 16:10 | Emergency (ER) | payer MEDICAID, MEDICARE ==
[~2022-10-28] VITALS: Ht 157.5 cm; Wt 55.7 kg
[2022-10-28 16:10] VITALS: BP 112/65
[~2022-10-28 16:10] MED LIST changes: -DOXY150C PO; +DOXY150C3 PO
[2022-10-28] MEDS ORDERED: LIDOCAINE 1% MDV 20ML VIAL SC ONE (16:55)
[2022-10-28] MEDS ORDERED: NEOSPORIN TOP OINT 15GM TOP STA (18:14)
[2022-10-28] MEDS ORDERED: IBUPROFEN 800 MG TAB PO ONE (18:20)
== END 2022-10-28 19:04 | disposition home or self-care (01) ==
LOC: M ED 16:10
DX: S61.102A Unspecified open wound of left thumb with damage to nail, initial encounter (principal); X58.XXXA Exposure to other specified factors, initial encounter; K21.9 Gastro-esophageal reflux disease without esophagitis; F41.9 Anxiety disorder, unspecified; F32.9 Major depressive disorder, single episode, unspecified; E03.9 Hypothyroidism, unspecified; F12.10 Cannabis abuse, uncomplicated; Z88.0 Allergy status to penicillin

== ENCOUNTER 2022-10-31 18:31 | Emergency (ER) | payer MEDICARE ==
[~2022-10-31] VITALS: Ht 157.5 cm; Wt 54.9 kg
[2022-10-31] MEDS ORDERED: IBUP-1022 PO (18:39)
[2022-10-31 20:14] LABS: BASO % 0.3 % (0.0-1.0); EOS # 0.1 10^3/uL (0.0-0.5); EOS % 0.7 % (0.0-3.0); HEMATOCRIT 42.8 % (36.0-47.0); HEMOGLOBIN 14.3 g/dl (12.0-15.5); LYMPH # 1.7 10^3/uL (1.5-5.0); LYMPH % 13.6 % (24.0-44.0); MEAN CORPUSCULAR HEMOGLOBIN 31.6 pg (27.0-33.0); MEAN CORPUSCULAR HGB CONC 33.4 g/dl (32.0-36.5); MEAN CORPUSCULAR VOLUME 94.5 fl (80.0-96.0); MONO # 1.2 10^3/uL (0.0-0.8); MONO % 9.7 % (2.0-8.0); NEUTROPHILS # 9.2 10^3/uL (1.5-8.5); NEUTROPHILS % 75.2 % (36.0-66.0); PLATELET COUNT, AUTOMATED 310 10^3/uL (150-450); RED BLOOD COUNT 4.53 10^6/uL (4.00-5.40); WHITE BLOOD COUNT 12.2 10^3/uL (4.0-10.0)
[2022-10-31 20:41] LABS: LIPASE 35 U/L (12-53)
[2022-10-31 20:43] LABS: ALBUMIN 3.8 G/DL (3.2-5.2); ALKALINE PHOSPHATASE 66 U/L (46-116); ALT/SGPT 10 U/L (7.0-40); AST/SGOT 14 U/L (<34); BILIRUBIN,DIRECT < 0.1 MG/DL (<0.4); BILIRUBIN,TOTAL 0.3 MG/DL (0.3-1.2); BLOOD UREA NITROGEN 14 MG/DL (9-23); CALCIUM LEVEL 9.6 MG/DL (8.5-10.1); CARBON DIOXIDE LEVEL 30 MMOL/L (20-31); CHLORIDE LEVEL 104 MMOL/L (98-107); CREATININE FOR GFR 0.86 MG/DL (0.55-1.30); GLOMERULAR FILTRATION RATE > 60.0 (>60); GLUCOSE, FASTING 84 MG/DL (60-100); POTASSIUM SERUM 4.4 MMOL/L (3.5-5.1); SODIUM LEVEL 141 MMOL/L (136-145)
[2022-10-31 20:46] LABS: HCG, SERUM QUALITATIVE NEGATIVE (NEGATIVE)
[2022-11-01] MEDS ORDERED: CIPROFLOXACIN 500MG TABLET PO ONE (03:05)
[2022-11-01] MEDS ORDERED: PHENAZOPYRIDINE 100 MG TAB PO ONE (03:05)
[2022-11-01] MEDS ORDERED: CIPR-249 PO (03:05)
[2022-11-01] MEDS ORDERED: PYRI1TAB5 PO (03:05)
[2022-11-01 03:23] VITALS: BP 120/58
== END 2022-11-01 03:27 | disposition home or self-care (01) ==
LOC: M ED 18:31
DX: N10 Acute pyelonephritis (principal); F12.10 Cannabis abuse, uncomplicated; Z88.0 Allergy status to penicillin; Z79.899 Other long term (current) drug therapy

== ENCOUNTER → 2023-02-12 | Outpatient (CLI) | payer MEDICAID, MEDICARE, OTHER, SELFPAY ==
[~2023-02-12] MED LIST changes: +CIPR-249 PO; +IBUP-1022 PO; +PYRI1TAB5 PO
[2023-02-12 18:11] LABS: FOLATE 17.15 NG/ML (>5.4)
== END ==
LOC: M PLALAB 14:21
PROVIDERS: ATTEND Physician Assistant
DX: R20.2 Paresthesia of skin (principal)

== ENCOUNTER 2023-09-25 00:34 | Inpatient (IN) | payer OTHER, SELFPAY ==
[~2023-09-25] VITALS: Ht 152.4 cm; Wt 56.0 kg
[2023-09-25] MEDS ORDERED: HYDR-3713 PO (00:41)
[2023-09-25] MEDS: NS 1,000 ML IV ONE (00:55)
[2023-09-25] MEDS ORDERED: ONDANSETRON 4MG 2ML VIAL As Ordered ONE (00:58)
[2023-09-25] MEDS: MORPHINE 4 MG/ML 1ML VIAL IV ONE (00:59)
[2023-09-25] MEDS: ONDANSETRON 4MG 2ML VIAL IV ONE (01:06)
[2023-09-25 01:18] LABS: BASO % 0.3 % (0.0-1.0); EOS # 0.1 10^3/uL (0.0-0.5); HEMATOCRIT 41.3 % (36.0-47.0); HEMOGLOBIN 14.2 g/dl (12.0-15.5); LYMPH # 4.3 10^3/uL (1.5-5.0); LYMPH % 30.5 % (24.0-44.0); MEAN CORPUSCULAR HEMOGLOBIN 30.6 pg (27.0-33.0); MEAN CORPUSCULAR HGB CONC 34.4 g/dl (32.0-36.5); MONO # 1.2 10^3/uL (0.0-0.8); MONO % 8.5 % (2.0-8.0); NEUTROPHILS # 8.3 10^3/uL (1.5-8.5); NEUTROPHILS % 59.3 % (36.0-66.0); PLATELET COUNT, AUTOMATED 312 10^3/uL (150-450); RED BLOOD COUNT 4.64 10^6/uL (4.00-5.40); WHITE BLOOD COUNT 13.9 10^3/uL (4.0-10.0)
[2023-09-25 01:36] LABS: LIPASE 31 U/L (12-53)
[2023-09-25 01:39] LABS: ALBUMIN 4.4 G/DL (3.2-5.2); ALKALINE PHOSPHATASE 53 U/L (46-116); ALT/SGPT 15 U/L (7.0-40); AST/SGOT 17 U/L (<34); BILIRUBIN,DIRECT 0.1 MG/DL (<0.4); BILIRUBIN,TOTAL 0.5 MG/DL (0.3-1.2); BLOOD UREA NITROGEN 19 MG/DL (9-23); CALCIUM LEVEL 9.6 MG/DL (8.5-10.1); CARBON DIOXIDE LEVEL 23 MMOL/L (20-31); CHLORIDE LEVEL 106 MMOL/L (98-107); CREATININE FOR GFR 0.96 MG/DL (0.55-1.30); GLOMERULAR FILTRATION RATE > 60.0 (>60); GLUCOSE, FASTING 92 MG/DL (60-100); POTASSIUM SERUM 3.7 MMOL/L (3.5-5.1); SODIUM LEVEL 140 MMOL/L (136-145); TOTAL PROTEIN 7.3 G/DL (5.7-8.2)
[2023-09-25] MEDS: KETOROLAC 30 MG/ML 1ML VIAL IV ONE (01:47)
[2023-09-25 02:08] LABS: HCG, SERUM QUALITATIVE NEGATIVE (NEGATIVE)
[2023-09-25] MEDS ORDERED: ISOVUE-370 76% 100ML VIAL As Ordered ONE (02:12)
[2023-09-25] MEDS ORDERED: HYDR-4571 PO ×2 (04:55→17:53)
[2023-09-25] MEDS ORDERED: HOME MED LIST COMPLETE! XX SCH (04:55)
[2023-09-25] MEDS: NS 1,000 ML IV SCH (05:08)
[2023-09-25] MEDS ORDERED: MORPHINE 4 MG/ML 1ML VIAL IV PRN (05:15)
[2023-09-25] MEDS: ONDANSETRON 4MG 2ML VIAL IV PRN (07:28)
[2023-09-25] MEDS: cefTRIAXone SOD 1 GM in D5W MINI-BAG PLUS 50 ML IV SCH (07:28)
[2023-09-25] MEDS: KETOROLAC 30 MG/ML 1ML VIAL IV PRN (07:29)
[2023-09-25 08:17] LABS: BASO % 0.2 % (0.0-1.0); EOS % 0.2 % (0.0-3.0); HEMATOCRIT 39.3 % (36.0-47.0); HEMOGLOBIN 13.5 g/dl (12.0-15.5); LYMPH # 2.1 10^3/uL (1.5-5.0); LYMPH % 19.2 % (24.0-44.0); MEAN CORPUSCULAR HEMOGLOBIN 30.8 pg (27.0-33.0); MEAN CORPUSCULAR HGB CONC 34.4 g/dl (32.0-36.5); MEAN CORPUSCULAR VOLUME 89.7 fl (80.0-96.0); MONO # 1.1 10^3/uL (0.0-0.8); MONO % 9.5 % (2.0-8.0); NEUTROPHILS # 7.8 10^3/uL (1.5-8.5); NEUTROPHILS % 70.5 % (36.0-66.0); PLATELET COUNT, AUTOMATED 266 10^3/uL (150-450); RED BLOOD COUNT 4.38 10^6/uL (4.00-5.40); WHITE BLOOD COUNT 11.1 10^3/uL (4.0-10.0)
[2023-09-25 08:30] VITALS: BP 110/50; TEMP 98.4; O2SAT 97
[2023-09-25] MEDS ORDERED: ENOXAPARIN 40MG/0.4ML SYRINGE (J1650 PER 10MG) SC SCH (09:00)
[2023-09-25 09:07] LABS: CALCIUM LEVEL 8.5 MG/DL (8.5-10.1); CREATININE FOR GFR 1.18 MG/DL (0.55-1.30); GLOMERULAR FILTRATION RATE 58.1 (>60); POTASSIUM SERUM 4.5 MMOL/L (3.5-5.1)
[2023-09-25 14:00] VITALS: BP 97/54; TEMP 98.2; O2SAT 93
[2023-09-25 15:35] VITALS: BP 100/58; TEMP 98.6; O2SAT 97
[2023-09-25] MEDS ORDERED: LIDOCAINE 2% 100MG/5ML SDV (FOR ANES.) As Ordered ONE (16:19)
[2023-09-25] MEDS ORDERED: propofoL 200 MG/20 ML VIAL As Ordered ONE (16:19)
[2023-09-25] MEDS: ceFAZolin SOD 2 GM in IV 1 EA IV ONE (16:20)
[2023-09-25] MEDS ORDERED: ceFAZolin 2 GM/D5W 50 ML IV BAG As Ordered ONE (16:20)
[2023-09-25] MEDS ORDERED: fentaNYL 100 MCG/2 ML INJECTION As Ordered ONE (16:23)
[2023-09-25] MEDS ORDERED: MIDAZOLAM INJ 2MG/2ML VIAL As Ordered ONE (16:23)
[2023-09-25] MEDS ORDERED: ACETAMINOPHEN 1000MG 100ML IV BAG As Ordered ONE (17:01)
[2023-09-25] MEDS: LR 1,000 ML IV SCH (17:25)
[2023-09-25] MEDS ORDERED: fentaNYL 100 MCG/2 ML INJECTION IV PRN (17:25)
[2023-09-25] MEDS ORDERED: ONDANSETRON 4MG 2ML VIAL IV PRN (17:25)
[2023-09-25] MEDS ORDERED: HYDROMORPHONE HCL 0.5 MG/ 0.5 ML SYRINGE IV PRN (17:25)
[2023-09-25] MEDS ORDERED: oxyCODONE 5MG TAB PO PRN (17:25)
[2023-09-25] MEDS ORDERED: LEVO750T14 PO (17:53)
[2023-09-25 18:00] VITALS: BP 120/60; TEMP 98.1; O2SAT 100
[2023-09-25 18:30] VITALS: BP 100/52; TEMP 98.8; O2SAT 99
[2023-09-25 19:00] VITALS: BP 94/55; TEMP 98.6; O2SAT 99
[2023-09-26] MEDS ORDERED: HYDR-4571 PO (10:16)
== END 2023-09-25 19:46 | disposition home or self-care (01) | DRG 446 ==
LOC: M ED 00:34 → M ED INP 04:45 → ENRESERV 07:53 → M MSPAV 08:28
PROVIDERS: ADMIT Internal Medicine; ATTEND Internal Medicine
PROC: 0T9680Z Drainage of Right Ureter with Drainage Device, Via Natural or Artificial Opening Endoscopic (ICD-10-PCS; 2023-09-25)
PROC: 0TC68ZZ Extirpation of Matter from Right Ureter, Via Natural or Artificial Opening Endoscopic (ICD-10-PCS; principal; 2023-09-25 16:00)
DX: N20.1 Calculus of ureter (principal); Z88.0 Allergy status to penicillin

== ENCOUNTER → 2024-05-27 | Outpatient (CLI) | payer OTHER ==
[~2024-05-27] MED LIST changes: -DOXY150C3 PO; +DOXY150C5 PO; +HYDR-3713 PO; +HYDR-4571 PO; +LEVO75TAB PO; +ONDA-282 PO; -ONDA4TAB6 PO
== END ==
LOC: M RAD 12:26
PROVIDERS: ATTEND Urology
DX: N20.0 Calculus of kidney (principal)

== ENCOUNTER 2024-07-20 01:04 | Emergency (ER) | payer BC, MEDICAID, OTHER, SELFPAY ==
[~2024-07-20] VITALS: Ht 157.5 cm; Wt 54.4 kg
[2024-07-20] MEDS: ANEXSIA, NORCO 7.5MG/325MG TABLET(HYDROCODONE/APAP) PO ONE (03:47)
[2024-07-20] MEDS ORDERED: HYDR-4571 PO (03:47)
[2024-07-20 04:27] VITALS: BP 113/66; TEMP 97.9; O2SAT 99
== END 2024-07-20 04:22 | disposition home or self-care (01) ==
LOC: M ED 01:04
DX: S52.351A Displaced comminuted fracture of shaft of radius, right arm, initial encounter for closed fracture (principal); S52.611A Displaced fracture of right ulna styloid process, initial encounter for closed fracture; W19.XXXA Unspecified fall, initial encounter; F10.10 Alcohol abuse, uncomplicated; Z88.1 Allergy status to other antibiotic agents; Y92.410 Unspecified street and highway as the place of occurrence of the external cause; Y93.89 Activity, other specified; Y99.9 Unspecified external cause status; Z79.899 Other long term (current) drug therapy

== ENCOUNTER → 2024-07-29 | Outpatient (CLI) | payer MEDICAID | LOC: M SOG 07:53 | PROVIDERS: ATTEND Physician Assistant | DX: S52.571A Other intraarticular fracture of lower end of right radius, initial encounter for closed fracture (principal); S52.614A Nondisplaced fracture of right ulna styloid process, initial encounter for closed fracture; X58.XXXA Exposure to other specified factors, initial encounter; Y92.9 Unspecified place or not applicable; Y93.9 Activity, unspecified; Y99.9 Unspecified external cause status ==

== ENCOUNTER → 2024-08-05 | Outpatient (CLI) | payer MEDICAID | LOC: M SOG 07:55 | PROVIDERS: ATTEND Physician Assistant | DX: S52.571A Other intraarticular fracture of lower end of right radius, initial encounter for closed fracture (principal); Z53.9 Procedure and treatment not carried out, unspecified reason ==

== ENCOUNTER → 2024-08-12 | Outpatient (CLI) | payer MEDICAID | LOC: M SOG 07:49 | PROVIDERS: ATTEND Physician Assistant | DX: S52.571D Other intraarticular fracture of lower end of right radius, subsequent encounter for closed fracture with routine healing (principal) ==

== ENCOUNTER → 2024-09-02 | Outpatient (CLI) | payer MEDICAID | LOC: M SOG 07:55 | PROVIDERS: ATTEND Physician Assistant | DX: S52.571D Other intraarticular fracture of lower end of right radius, subsequent encounter for closed fracture with routine healing (principal) ==

== ENCOUNTER → 2024-09-30 | Outpatient (CLI) | payer OTHER, MEDICAID | LOC: M SOG 07:51 | PROVIDERS: ATTEND Physician Assistant | DX: Z53.21 Procedure and treatment not carried out due to patient leaving prior to being seen by health care provider (principal) ==